=== PATIENT | female | born 1975 ===

== ENCOUNTER 2017-11-10 12:28 | Emergency (ER) | payer MEDICAID ==
[2017-11-10 12:29] VITALS: BMI 19.8
[2017-11-10 12:41] VITALS: BP 128/89; PULSE 80; RESP 18; TEMP 99.1; O2SAT 98
[2017-11-10] MEDS ORDERED: Naproxen 500 MG TAB PO ONE (13:04)
[2017-11-10] MEDS ORDERED: Dexamethasone 4 mg/1 ml IM STA (13:05)
--- NOTE | 2017-11-10 13:32 | ED PDOC ---
HPI: General Adult Time Seen by Provider: 11/10/17 12:50 Chief Complaint (Nursing): Flu-like Symptoms Chief Complaint (Provider): Sore Throat and Mild Cough History Per: Patient History/Exam Limitations: no limitations Onset/Duration Of Symptoms: Days (x4) Current Symptoms Are (Timing): Still Present Additional Complaint(s): 42 year old female with a past medical history of asthma presenting to the ED complaining of sore throat and mild cough x4 days. The patient states that the pain radiates to both her ears and she has taken motrin 800 mg without relief. Denies rash, abdominal pain. PMD: Non [facility] Provider Past Medical History Reviewed: Historical Data, Nursing Documentation, Vital Signs Vital Signs: Last Vital Signs Temp 99.1 F 11/10/17 12:39 Pulse 80 11/10/17 12:39 Resp 18 11/10/17 12:39 BP 128/89 11/10/17 12:39 Pulse Ox 98 11/10/17 13:37 - Medical History PMH: Asthma Denies: Chronic Kidney Disease - Surgical History Surgical History: No Surg Hx - Family History Family History: States: Unknown Family Hx - Social History Current smoker - smoking cessation education provided: No Ex-Smoker (has not smoked in the last 12 months): No Alcohol: None Drugs: Denies - Home Medications Home Medications: Ambulatory Orders Medication Instructions Recorded Albuterol Sulfate [Proventil Hfa] 1 puff PO PRN PRN 10/15/16 Docusate [Colace] 1 cap PO PRN PRN 10/15/16 Ferrous Sulfate [Feosol] 1 tab PO DAILY 10/15/16 Vit Calc,Iron,Folic 1 tab PO DAILY 10/15/16 [ Vitamins] Amoxicillin/Clavulanate [Augmentin 1 tab PO BID #14 tab 10/19/16 500 MG-125 MG] Bethanechol [Urecholine] 50 mg PO QID #120 tab 10/19/16 Ibuprofen [Motrin Tab] 600 mg PO Q6 PRN #30 tab 10/19/16 oxyCODONE/Acetaminophen [Percocet 1 ea PO Q8H PRN #20 tab 10/19/16 5/325 mg Tab] Benzonatate [Tessalon Perle] 100 mg PO Q8 PRN #14 capsule 11/10/17 Mag&Al/Simet/Diphen/Lido [First 5 ml MM Q8 PRN #1 kit 11/10/17 Magic Mouthwash] Naproxen [Naprosyn] 500 mg PO BID PRN #14 tab 11/10/17 - Allergies Allergies/Adverse Reactions: Allergies Allergy/AdvReac Type Severity Reaction Status Date / Time propofol [From Diprivan] Allergy SHORTNESS Verified 10/15/16 00:51 OF BREATH Review of Systems ENT: Positive for: Throat Pain Respiratory: Positive for: Cough (mild) Gastrointestinal: Negative for: Abdominal Pain Skin: Negative for: Rash Physical Exam - Physical Exam Appears: Positive for: Non-toxic, No Acute Distress Head Exam: Positive for: NORMAL INSPECTION Skin: Positive for: Normal Color, Warm, Dry. Negative for: Rash Eye Exam: Positive for: Normal appearance, EOMI, PERRL ENT: Positive for: Normal ENT Inspection. Negative for: Tonsillar Exudate, Tonsillar Swelling Cardiovascular/Chest: Positive for: Regular Rate, Rhythm, Chest Non Tender. Negative for: Tachycardia Respiratory: Positive for: Normal Breath Sounds. Negative for: Wheezing, Respiratory Distress Gastrointestinal/Abdominal: Positive for: Normal Exam, Bowel Sounds, Soft. Negative for: Tenderness, Organomegaly, Guarding, Rebound Neurologic/Psych: Positive for: Alert, Oriented - ECG O2 Sat by Pulse Oximetry: 98 (RA) Pulse Ox Interpretation: Normal - Progress Re-evaluation Time: 14:27 (Tolerating PO fluids in ED. Sleeping comfortably in ED. Easily arousable. Reports pain has improved but still present. No trismus. Able to swallow saliva. ) Condition: Re-examined, Improving,but remains with symptoms Medical Decision Making Medical Decision Makin Initial Impression 42 y/o female presenting with mild cough and sore throat Initial Plan: * Upreg * Decadron 10mg IM * Lidocaiine viscous 15ml PO * Naproxen 500mg PO * Rapid Strep Group * Reevaluation Documented by Yamilex Gonzales acting as a scribe for Valente Ellis PA-C. All medical record entries made by the Scribe were at my direction and personally dictated by me. I have reviewed the chart and agree that the record accurately reflects my personal performance of the history, physical exam, medical decision making, and the department course for this patient. I have also personally directed, reviewed, and agree with the discharge instructions and disposition. Disposition - Clinical Impression Clinical Impression: Pharyngitis - Patient ED Disposition Is Patient to be Admitted: No - Disposition Referrals: Mario Goodrich [Outside] Disposition: Routine/Home Disposition Time: 14:27 Condition: IMPROVED Additional Instructions: Follow up your PMD in 2 days for further evaluation. Return to ED immediately if symptoms persist or worsen. Drink plenty of fluids. Do warm salt water gargles. Prescriptions: Benzonatate [Tessalon Perle] 100 mg PO Q8 PRN #14 capsule PRN Reason: Cough Mag&Al/Simet/Diphen/Lido [First Magic Mouthwash] 5 ml MM Q8 PRN #1 kit PRN Reason: Other Naproxen [Naprosyn] 500 mg PO BID PRN #14 tab PRN Reason: Pain Instructions: Pharyngitis (ED) Forms: [email or web address] (Bengali), [facility] ED School/Work Excuse Print Language: HUNGARIAN
== END 2017-11-10 14:42 | disposition home or self-care (01) ==
LOC: H.ER 12:28
DX: J02.9 Acute pharyngitis, unspecified (principal); Z87.891 Personal history of nicotine dependence
CPT/HCPCS: 81025; 87070; 87430; 96372; 99283; J1100

== ENCOUNTER 2018-09-25 15:31 | Emergency (ER) | payer MEDICAID, OTHER ==
[2018-09-25 15:31] VITALS: BMI 19.8
[2018-09-25 15:46] VITALS: RESP 18
--- NOTE | 2018-09-25 16:18 | ED PDOC ---
HPI: Abdomen Time Seen by Provider: 09/25/18 16:03 Chief Complaint (Nursing): Abdominal Pain Chief Complaint (Provider): abd pain History Per: Patient Additional Complaint(s): 43-year-old female with no past medical history presents with moderate right- sided abdominal pain that started 4 days ago and is gradually worsening. Patient reports nausea, decreased appetite and diarrhea. Patient states her last normal bowel movement was 4 days ago. Patient does have history of constipation but states that her right-sided abdominal pain today does not feel like her usual constipation symptoms. Patient feels very warm but has not measured her tempe rature. She denies any vaginal bleeding or discharge and has no concern for STDs. No associated dysuria. he should also states that 4 days ago she developed hives and pruritus and was started on course of prednisone. Hives and pruritus have resolved at this time. Patient unsure what caused allergic reaction. PMD: none Past Medical History Reviewed: Historical Data Vital Signs: Last Vital Signs Temp 99.6 F 09/25/18 15:43 Pulse 76 09/25/18 15:43 Resp 18 09/25/18 15:43 BP 116/74 09/25/18 15:43 Pulse Ox 99 09/25/18 15:43 - Medical History PMH: Asthma - Surgical History Surgical History: No Surg Hx - Family History Family History: States: No Known Family Hx - Living Arrangements Living Arrangements: With Family - Social History Current smoker - smoking cessation education provided: No Alcohol: None Drugs: Denies - Home Medications Home Medications: Ambulatory Orders Medication Instructions Recorded Albuterol Sulfate [Proventil Hfa] 1 puff PO PRN PRN 10/15/16 Docusate [Colace] 1 cap PO PRN PRN 10/15/16 Ferrous Sulfate [Feosol] 1 tab PO DAILY 10/15/16 Vit Calc,Iron,Folic 1 tab PO DAILY 10/15/16 [ Vitamins] Amoxicillin/Clavulanate [Augmentin 1 tab PO BID #14 tab 10/19/16 500 MG-125 MG] Bethanechol [Urecholine] 50 mg PO QID #120 tab 10/19/16 Ibuprofen [Motrin Tab] 600 mg PO Q6 PRN #30 tab 10/19/16 oxyCODONE/Acetaminophen [Percocet 1 ea PO Q8H PRN #20 tab 10/19/16 5/325 mg Tab] Benzonatate [Tessalon Perle] 100 mg PO Q8 PRN #14 capsule 11/10/17 Mag&Al/Simet/Diphen/Lido [First 5 ml MM Q8 PRN #1 kit 11/10/17 Magic Mouthwash] Naproxen [Naprosyn] 500 mg PO BID PRN #14 tab 11/10/17 - Allergies Allergies/Adverse Reactions: Allergies Allergy/AdvReac Type Severity Reaction Status Date / Time propofol [From Diprivan] Allergy SHORTNESS Verified 10/15/16 00:51 OF BREATH Review of Systems ROS Statement: Except As Marked, All Systems Reviewed And Found Negative Constitutional: Positive for: Chills. Negative for: Fever Cardiovascular: Negative for: Chest Pain Respiratory: Negative for: Cough Gastrointestinal: Positive for: Nausea, Abdominal Pain, Diarrhea, Constipation. Negative for: Rectal Pain Genitourinary Female: Negative for: Dysuria, Frequency, Incontinence, Hematuria, Vaginal Discharge, Vaginal Bleeding Physical Exam - Reviewed Nursing Documentation Reviewed: Yes Vital Signs Reviewed: Yes - Physical Exam Appears: Positive for: Well, Non-toxic, No Acute Distress Skin: Positive for: Normal Color. Negative for: Rash Eye Exam: Positive for: Normal appearance Cardiovascular/Chest: Positive for: Regular Rate, Rhythm Respiratory: Positive for: Normal Breath Sounds. Negative for: Wheezing, Respiratory Distress Gastrointestinal/Abdominal: Positive for: Other (moderate right lower quadrant tenderness with positive guarding, no rebound, mild diffuse abdominal distention noted, mild right CVA tenderness) Back: Positive for: R CVA Tenderness. Negative for: L CVA Tenderness, Vertebral Tenderness Extremity: Positive for: Normal ROM Neurologic/Psych: Positive for: Alert, Oriented - Laboratory Results Result Diagrams: 09/25/18 18:15 09/25/18 17:40 - ECG O2 Sat by Pulse Oximetry: 99 Pulse Ox Interpretation: Normal Medical Decision Making Medical Decision Makin43 y/o with abd pain Plan: Urine dip and test CBC CMP Blood cultures Lipase IVF IV zofran IV toradol CT abd and pelvis with PO and IV contrast 6:40 pm: patient states nausea has improved. She was able to tolerate oral contrast. Patient still complains of persistent pain despite Toradol dose given. 4 mg IV morphine ordered. CT will be completed at 20:00. 6:48 pm: patient reports asthma symptoms, albuterol neb x 1 given. Disposition - Clinical Impression Clinical Impression: Abdominal pain - Patient ED Disposition Is Patient to be Admitted: Transfer of Care - Disposition Disposition: Transfer of Care Disposition Time: 20:00 Condition: FAIR Forms: [employer] (East [place]orese) Patient Signed Over To: Mary Carmen Medina Handoff Comments: Signed out pending CT and final disposition Results - Lab Results Lab Results: 09/25/18 09/25/18 09/25/18 18:15 17:40 17:20 WBC 10.5 RBC 4.32 Hgb 13.2 D Hct 38.9 MCV 90.1 MCH 30.5 MCHC 33.8 RDW 12.5 Plt Count 321 MPV 7.3 Neut % (Auto) 77.6 H Lymph % (Auto) 17.7 L Piatt % (Auto) 4.5 Eos % (Auto) 0.0 Baso % (Auto) 0.2 Neut # (Auto) 8.1 H Lymph # (Auto) 1.9 Piatt # (Auto) 0.5 Eos # (Auto) 0.0 Baso # (Auto) 0.0 Sodium 141 Potassium 4.6 Chloride 104 Carbon Dioxide 25 Anion Gap 17 BUN 10 Creatinine 0.4 L Est GFR ( Amer) > 60 Est GFR (Non-Af Amer) > 60 Random Glucose 114 H Calcium 10.0 Total Bilirubin 0.5 AST 29 ALT 41 Alkaline Phosphatase 83 Total Protein 7.7 Albumin 4.5 Globulin 3.2 Albumin/Globulin Ratio 1.4 Lipase 84 Urine Color Straw Urine Clarity Clear Urine pH 6.0 Ur Specific [place] 1.009 Urine Protein Negative Urine Glucose (UA) Neg Urine Ketones Negative Urine Blood Small Urine Nitrate Negative Urine Bilirubin Negative Urine Urobilinogen 0.2-1.0 Ur Leukocyte Esterase Trace Urine RBC (Auto) 1 Urine Microscopic WBC 3 Ur Squamous Epith Cells 2 Urine Bacteria Rare
[2018-09-25] MEDS ORDERED: Sodium Chloride 0.9% 1,000 ML IV STA (17:01)
[2018-09-25] MEDS ORDERED: Iohexol 240 (50 ml) PO STA (17:01)
[2018-09-25] MEDS ORDERED: Iohexol 240 (50 ml) ONE (17:14)
[2018-09-25 17:43] LABS: SQUAMOUS EPITHIAL 2 /hpf (0-5); URINE BACTERIA RARE (<OCC); URINE BILIRUBIN NEGATIVE (NEGATIVE); URINE BLOOD SMALL (NEGATIVE); URINE CLARITY CLEAR (Clear); URINE COLOR STRAW (YELLOW); URINE GLUCOSE (UA) NEG (NEGATIVE); URINE LEUKOCYTE ESTERASE TRACE Leu/uL (Negative); URINE PROTEIN NEGATIVE (NEGATIVE); URINE UROBILINOGEN 0.2-1.0 mg/dL (0.2-1.0)
[2018-09-25 17:44] LABS: BASO % 0.2 % (0.0-2.0); HEMOGLOBIN 13.2 g/dL (12.0-16.0); LYMPH # 1.9 K/uL (1.0-4.3); LYMPH % 17.7 % (20.0-40.0); MEAN CELL VOLUME 90.1 fl (81.0-99.0); MEAN CORPUSCULAR HEMOGLOBIN 30.5 pg (27.0-31.0); MEAN CORPUSCULAR HGB CONC 33.8 g/dL (33.0-37.0); MEAN PLATELET VOLUME 7.3 fl (7.2-11.7); MONO # 0.5 K/uL (0.0-0.8); MONO % 4.5 % (0.0-10.0); NEUT # 8.1 K/uL (1.8-7.0); NEUT % 77.6 % (50.0-75.0); RBC 4.32 Mil/uL (3.80-5.20); RED CELL DISTRIBUTION WIDTH 12.5 % (11.5-14.5); WHITE BLOOD COUNT 10.5 K/uL (4.8-10.8)
[2018-09-25 17:55] LABS: ALB/GLOB RATIO 1.4 (1.0-2.1); ALBUMIN 4.5 g/dL (3.5-5.0); ALT/SGPT 41 U/L (9-52); AST/SGOT 29 U/L (14-36); BLOOD UREA NITROGEN 10 mg/dl (7-17); GFR NON-AFRICAN AMERICAN > 60; LIPASE 84 U/L (23-300)
[2018-09-25] MEDS ORDERED: Morphine 4 MG/ML VIAL IVP STA (18:37)
[2018-09-25] MEDS ORDERED: Morphine 4 MG/ML VIAL ONE (18:44)
[2018-09-25] MEDS ORDERED: Albuterol 0.083% Inhal Sol (2.5 mg/3 mL) UD INH STA (18:48)
[2018-09-25] MEDS ORDERED: Albuterol 0.083% Inhal Sol (2.5 mg/3 mL) UD ONE (18:54)
[2018-09-25] MEDS ORDERED: Iohexol 300 100 ML IJ ONE (19:56)
[2018-09-25] MEDS ORDERED: Sodium Chloride 0.9% 50 ML IV ONE (19:57)
--- NOTE | 2018-09-25 21:21 | ED PDOC ---
- Laboratory Results Result Diagrams: 09/25/18 18:15 09/25/18 17:40 - ECG O2 Sat by Pulse Oximetry: 99 Pulse Ox Interpretation: Normal Medical Decision Making Medical Decision Making: Colitis and enteritis on CT. F.u with GI. Disposition - Clinical Impression Clinical Impression: Colitis - POA Present On Arrival: None - Disposition Referrals: Rafiq Melgar MD [Staff Provider] - Disposition: Routine/Home Disposition Time: 21:19 Condition: GOOD Additional Instructions: Please follow-up with GI. Prescriptions: Ciprofloxacin [Cipro] 500 mg PO BID #20 tab metroNIDAZOLE [Flagyl] 500 mg PO TID #30 tab oxyCODONE/Acetaminophen [Percocet 5/325 mg Tab] 1 ea PO Q6H PRN #10 tab PRN Reason: Pain, Severe (8-10) Instructions: Colitis Forms: [employer] [facility] (Tajik)
[2018-09-25 21:36] VITALS: BP 109/64; PULSE 72; TEMP 98.4; O2SAT 97
--- NOTE | 2018-09-26 12:56 | CT ---
Date of service: 09/25/2018 PROCEDURE: CT Abdomen and Pelvis with contrast HISTORY: moderate RLQ pain COMPARISON: None. TECHNIQUE: Contrast dose: 90 mL Omnipaque 300 Radiation dose: Total exam DLP = 292.93 mGy-cm. This CT exam was performed using one or more of the following dose reduction techniques: Automated exposure control, adjustment of the mA and/or kV according to patient size, and/or use of iterative reconstruction technique. FINDINGS: LOWER THORAX: Unremarkable. LIVER: Unremarkable. No gross lesion or ductal dilatation. GALLBLADDER AND BILE DUCTS: Unremarkable. PANCREAS: Unremarkable. No gross lesion or ductal dilatation. SPLEEN: Unremarkable. ADRENALS: Unremarkable. No mass. KIDNEYS AND URETERS: Unremarkable. No hydronephrosis. No solid mass. VASCULATURE: Unremarkable. No aortic aneurysm. No aortic atherosclerotic calcification or mural plaque present. BOWEL: Circumferential mural thickening of several loops of proximal jejunum consistent with nonspecific enteritis. No bowel obstruction. No other abnormal bowel loops are identified. APPENDIX: Normal appendix. PERITONEUM: Unremarkable. No free fluid. No free air. LYMPH NODES: Unremarkable. No enlarged lymph nodes. BLADDER: Unremarkable. REPRODUCTIVE: Normal uterus BONES: No acute fracture. OTHER FINDINGS: None. IMPRESSION: Findings consistent with nonspecific enteritis involving multiple loops of proximal jejunum. No evidence of acute appendicitis. Otherwise unremarkable examination. The preliminary findings for this examination were reported by [facility] at 8:59 p.m. on 09/25/2018. There is discordance of this report with the preliminary findings. There is no evidence of colitis in this examination. There is evidence of enteritis as described in the preliminary report.
== END 2018-09-25 21:59 | disposition home or self-care (01) ==
LOC: H.ER 15:31
DX: K52.9 Noninfective gastroenteritis and colitis, unspecified (principal); J45.909 Unspecified asthma, uncomplicated
CPT/HCPCS: 74177; 80053; 81003; 81025; 83690; 85025; 87040; 87086; 96374; 96375; 96376; 99284; J1885; J2270; J2405; J7030; Q9966; Q9967